=== PATIENT | female | born 1995 | race Two or more races ===

== ENCOUNTER → 2022-11-12 | Outpatient (CLI) | payer OTHER | LOC: M WHC 09:25 | PROVIDERS: ATTEND Advanced Practice Midwife | DX: Z36.89 Encounter for other specified antenatal screening (principal); Z3A.21 21 weeks gestation of pregnancy ==

== ENCOUNTER 2023-03-06 05:19 | Inpatient (IN) | payer OTHER ==
[2023-03-06] VITALS (9 sets, daily range): BP systolic 122–141; BP diastolic 61–79; TEMP 96.8; O2SAT 94–97
[~2023-03-06] VITALS: Ht 162.6 cm; Wt 117.3 kg
[~2023-03-06 05:19] MED LIST: PNV1TABL16 PO
[2023-03-06] MEDS ORDERED: LACTATED RINGER'S 1000 ML IV STA (05:27)
[2023-03-06] MEDS ORDERED: BICITRA 30ML SOLN UDC PO ONE ×2 (05:30→07:05)
[2023-03-06 06:22] LABS: HEMATOCRIT 32.6 % (36.0-47.0); HEMOGLOBIN 10.4 g/dl (12.0-15.5); MEAN CORPUSCULAR HEMOGLOBIN 24.9 pg (27.0-33.0); MEAN CORPUSCULAR HGB CONC 31.9 g/dl (32.0-36.5); PLATELET COUNT, AUTOMATED 334 10^3/uL (150-450); RED BLOOD COUNT 4.18 10^6/uL (4.00-5.40); WHITE BLOOD COUNT 10.1 10^3/uL (4.0-10.0)
[2023-03-06] MEDS ORDERED: ceFAZolin SOD 2 GM in IV 1 EA IV ONE ×2 (07:05→07:30)
[2023-03-06] MEDS ORDERED: ceFAZolin SOD 3 GM in IV 1 EA IV ONE (07:20)
[2023-03-06] MEDS ORDERED: ceFAZolin SOD 1 GM in D5W MINI-BAG PLUS 50 ML IV ONE (07:30)
[2023-03-06] MEDS: LR 1,000 ML IV SCH ×5 (07:38→21:30)
[2023-03-06] MEDS ORDERED: KETOROLAC 60MG 2ML VIAL As Ordered ONE (08:13)
[2023-03-06] MEDS ORDERED: OXYTOCIN 30UNITS IN 0.9% NaCl 500ML IV BAG As Ordered ONE ×2 (08:13→09:04)
[2023-03-06] MEDS ORDERED: ACETAMINOPHEN 1000MG 100ML IV BAG As Ordered ONE (08:13)
[2023-03-06] MEDS ORDERED: ONDANSETRON 4MG 2ML VIAL As Ordered ONE (08:13)
[2023-03-06] MEDS ORDERED: MORPHINE PRES-FREE INJ 10 MG/10 ML VIAL As Ordered ONE (08:13)
[2023-03-06] MEDS ORDERED: ePHEDrine SULFATE 25 MG/5 ML(5MG/ML) SYRINGE As Ordered ONE (08:14)
[2023-03-06] MEDS ORDERED: TRANEXAMIC ACID 100 MG/ML 10ML VIAL As Ordered ONE ×2 (08:37→09:36)
[2023-03-06] MEDS ORDERED: OXYTOCIN DRIP 30 UNITS in IV 1 EA IV SCH ×4 (09:35)
[2023-03-06] MEDS ORDERED: METHYLERGONOVINE MALEATE 0.2 MG TAB PO PRN (09:35)
[2023-03-06] MEDS ORDERED: oxyCODONE 5MG TAB PO PRN ×3 (09:35→09:40)
[2023-03-06] MEDS ORDERED: ONDANSETRON 4MG 2ML VIAL IV PRN ×2 (09:35→09:40)
[2023-03-06] MEDS ORDERED: RHOGAM 300MCG (1500IU) INJ IM SCH (09:35)
[2023-03-06] MEDS ORDERED: MORPHINE 2 MG/ML 1ML VIAL IV PRN (09:35)
[2023-03-06] MEDS ORDERED: METOCLOPRAMIDE INJ 10MG/2ML VIAL IV PRN ×2 (09:35→09:40)
[2023-03-06] MEDS ORDERED: MOM 30ML SUSPENSION UDC PO PRN (09:35)
[2023-03-06] MEDS ORDERED: SIMETHICONE 80MG CHEW TAB PO PRN (09:35)
[2023-03-06] MEDS ORDERED: MEPERIDINE 25 MG/ML 1ML VIAL IV PRN (09:40)
[2023-03-06] MEDS ORDERED: NALOXONE INJ 0.4MG/1ML VIAL IV PRN ×2 (09:40)
[2023-03-06] MEDS ORDERED: diphenhydrAMINE 50MG/ML VIAL IV PRN (09:40)
[2023-03-06] MEDS ORDERED: HYDROMORPHONE HCL 0.5 MG/ 0.5 ML SYRINGE IV PRN (09:40)
[2023-03-06] MEDS ORDERED: fentaNYL 100 MCG/2 ML INJECTION IV PRN (09:40)
[2023-03-06] MEDS: SLF 3 ML SYR IV SCH ×2 (09:40→17:40)
[2023-03-06] MEDS ORDERED: **NOTE PATIENT COMMENT** MISC XX SCH (09:40)
[2023-03-06] MEDS ORDERED: TRANEXAMIC ACID INJection 1,000 MG in D5W 100 ML IV ONE (10:00)
[2023-03-06] MEDS ORDERED: LR 1,000 ML IV ONE (14:15)
[2023-03-06] MEDS: ACETAMINOPHEN 500 MG TAB PO SCH ×2 (14:21→20:22)
[2023-03-06] MEDS: KETOROLAC 30 MG/ML 1ML VIAL IV SCH ×2 (15:08→20:50)
[2023-03-06] MEDS ORDERED: D5W/0.45% SODIUM CHLORIDE 1,000 ML IV ONE (17:35)
[2023-03-06 18:17] LABS: HEMATOCRIT 29.6 % (36.0-47.0); HEMOGLOBIN 9.3 g/dl (12.0-15.5); MEAN CORPUSCULAR HEMOGLOBIN 24.7 pg (27.0-33.0); MEAN CORPUSCULAR HGB CONC 31.4 g/dl (32.0-36.5); MEAN CORPUSCULAR VOLUME 78.7 fl (80.0-96.0); PLATELET COUNT, AUTOMATED 281 10^3/uL (150-450); RED BLOOD COUNT 3.76 10^6/uL (4.00-5.40)
[2023-03-06 18:31] LABS: ALBUMIN 1.9 G/DL (3.2-5.2); ALKALINE PHOSPHATASE 120 U/L (46-116); ALT/SGPT 30 U/L (7.0-40); AST/SGOT 26 U/L (<34); BILIRUBIN,TOTAL 0.4 MG/DL (0.3-1.2); BLOOD UREA NITROGEN 10 MG/DL (9-23); CALCIUM LEVEL 8.3 MG/DL (8.5-10.1); CARBON DIOXIDE LEVEL 25 MMOL/L (20-31); CHLORIDE LEVEL 106 MMOL/L (98-107); CREATININE FOR GFR 0.58 MG/DL (0.55-1.30); GLOMERULAR FILTRATION RATE > 60.0 (>60); GLUCOSE, FASTING 95 MG/DL (60-100); POTASSIUM SERUM 4.5 MMOL/L (3.5-5.1); SODIUM LEVEL 137 MMOL/L (136-145)
[2023-03-06] MEDS: DOCUSATE SODIUM 100MG CAPSULE PO SCH (20:51)
[2023-03-07] MEDS: LR 1,000 ML IV SCH (00:55)
[2023-03-07 02:00] VITALS: BP 135/83; O2SAT 97
[2023-03-07] MEDS: ACETAMINOPHEN 500 MG TAB PO SCH ×4 (02:14→20:18)
[2023-03-07] MEDS: SLF 3 ML SYR IV SCH (02:15)
[2023-03-07] MEDS: KETOROLAC 30 MG/ML 1ML VIAL IV SCH (03:15)
[2023-03-07 06:00] VITALS: BP 132/69; O2SAT 96
[2023-03-07 06:31] LABS: HEMATOCRIT 29.9 % (36.0-47.0); HEMOGLOBIN 9.4 g/dl (12.0-15.5); MEAN CORPUSCULAR HEMOGLOBIN 25.2 pg (27.0-33.0); MEAN CORPUSCULAR HGB CONC 31.4 g/dl (32.0-36.5); MEAN CORPUSCULAR VOLUME 80.2 fl (80.0-96.0); PLATELET COUNT, AUTOMATED 290 10^3/uL (150-450); RED BLOOD COUNT 3.73 10^6/uL (4.00-5.40); WHITE BLOOD COUNT 11.4 10^3/uL (4.0-10.0)
[2023-03-07] MEDS: DOCUSATE SODIUM 100MG CAPSULE PO SCH ×2 (07:57→20:18)
[2023-03-07] MEDS: PRENATAL VITAMINS CHEWABLE TABLET PO SCH (07:57)
[2023-03-07 10:00] VITALS: BP 132/84; O2SAT 100
[2023-03-07] MEDS: IBUPROFEN 800 MG TAB PO SCH ×2 (11:34→18:25)
[2023-03-07 14:00] VITALS: BP 127/60; O2SAT 96
[2023-03-07 18:00] VITALS: BP 132/65; O2SAT 96
[2023-03-07 22:00] VITALS: BP 127/70; O2SAT 95
[2023-03-08 02:00] VITALS: BP 136/70; O2SAT 95
[2023-03-08] MEDS: ACETAMINOPHEN 500 MG TAB PO SCH ×2 (02:41→08:02)
[2023-03-08] MEDS: IBUPROFEN 800 MG TAB PO SCH ×2 (04:09→10:55)
[2023-03-08 06:00] VITALS: BP 128/74; O2SAT 96
[2023-03-08] MEDS: PRENATAL VITAMINS CHEWABLE TABLET PO SCH (08:01)
[2023-03-08] MEDS: DOCUSATE SODIUM 100MG CAPSULE PO SCH (08:01)
[2023-03-08] MEDS ORDERED: ACET-683 PO (08:41)
[2023-03-08] MEDS ORDERED: IBUP80TA PO (08:41)
[2023-03-08] MEDS ORDERED: OXYC-517 PO (08:41)
[2023-03-08] MEDS ORDERED: COLA100C5 PO (08:41)
[2023-03-08] MEDS ORDERED: MEASLES,MUMPS,RUBELLA VACCINE INJ (MMR-II) SC.IMMUN ONE (09:00)
[2023-03-08 10:00] VITALS: BP 127/70; O2SAT 97
== END 2023-03-08 12:40 | disposition home or self-care (01) | DRG 773 ==
LOC: M LDI 05:19 → M OBS 11:00
PROVIDERS: ADMIT Obstetrics & Gynecology; ATTEND Obstetrics & Gynecology
PROC: 10D00Z1 Extraction of Products of Conception, Low, Open Approach (ICD-10-PCS; principal; 2023-03-06 07:30)
DX: O34.211 Maternal care for low transverse scar from previous cesarean delivery (principal); O24.420 Gestational diabetes mellitus in childbirth, diet controlled; O99.213 Obesity complicating pregnancy, third trimester; E66.9 Obesity, unspecified; Z3A.39 39 weeks gestation of pregnancy; Z37.0 Single live birth